=== PATIENT | male | born 1990 | race American Indian/Alaskan Native ===

== ENCOUNTER 2017-11-15 14:21 | Emergency (ER) | payer SELFPAY ==
--- NOTE | 2017-11-15 14:55 | C.PDOC ---
Time Seen by Provider: 11/15/17 14:37 Chief Complaint (Nursing): Abdominal Pain History Per: Patient Onset/Duration Of Symptoms: Days (few months), Intermittent Episodes Current Symptoms Are (Timing): Gone Location Of Pain/Discomfort: Other (midline) Quality Of Discomfort: "Pain" Exacerbating Factors: Other (Valsalva) Alleviating Factors: Other ("pushing it back in") Additional History Per: Prior Records Past Medical History Reviewed: Historical Data, Nursing Documentation, Vital Signs Vital Signs: Last Vital Signs Temp 98.2 F 11/15/17 14:30 Pulse 90 11/15/17 14:30 Resp 16 11/15/17 14:30 BP 125/81 11/15/17 14:30 Pulse Ox 99 11/15/17 14:30 - Medical History PMH: No Chronic Diseases Surgical History: No Surg Hx Family History: States: Unknown Family Hx - Social History Hx Alcohol Use: No Hx Substance Use: Yes - Immunization History Hx Tetanus Toxoid Vaccination: No Hx Influenza Vaccination: No Hx Pneumococcal Vaccination: No Review Of Systems Except As Marked, All Systems Reviewed And Found Negative. Constitutional: Negative for: Fever, Weakness Cardiovascular: Negative for: Chest Pain Respiratory: Negative for: Shortness of Breath Gastrointestinal: Negative for: Vomiting, Diarrhea Genitourinary: Negative for: Dysuria, Penile Discharge, Scrotal Pain Musculoskeletal: Negative for: Neck Pain, Back Pain Skin: Negative for: Rash Neurological: Negative for: Weakness, Numbness Physical Exam - Physical Exam Appears: Non-toxic, No Acute Distress Skin: Normal Color, Warm, Dry, No Rash Head: Atraumatic, Normacephalic Eye(s): bilateral: Normal Inspection, PERRL, EOMI Neck: Normal ROM, Supple Cardiovascular: Rhythm Regular Respiratory: Normal Breath Sounds, No Accessory Muscle Use Gastrointestinal/Abdominal: Soft, No Tenderness, No Distention, Hernia (small, midline ventral. Easily reducible) Back: No CVA Tenderness Extremity: Normal ROM Neurological/Psych: Oriented x3, Normal Motor, Normal Sensation ED Course And Treatment O2 Sat by Pulse Oximetry: 99 Pulse Ox Interpretation: Normal Progress Note: Pt's girlfriend keeps getting UTIs, currently being treated with Keflex. No STDs. Pt is asymptomatic but is requesting an "STD" check. Disposition Counseled Patient/Family Regarding: Studies Performed, Diagnosis, Need For Followup - Disposition Referrals: [facility] at [facility] [Outside] Jailyn Negron MD [Staff Provider] - Disposition: HOME/ ROUTINE Disposition Time: 14:56 Condition: STABLE Additional Instructions: Follow up with a General Surgeon for further evaluation and treatment. Return to the ER if you develop severe pain, vomiting, hernia does not go back inside, worsening of symptoms or if you have any other concerns. Instructions: Abdominal Hernia (DC) - Clinical Impression Clinical Impression: Ventral hernia
[2017-11-15 15:28] VITALS: BP 121/95; PULSE 77; RESP 18; TEMP 98.3; O2SAT 95
== END 2017-11-15 15:32 | disposition home or self-care (01) ==
LOC: C.ER 14:21 → MERGE 14:21 → C.ER 15:32
DX: K43.9 Ventral hernia without obstruction or gangrene (principal)